=== PATIENT | female | born 1995 | race Caucasian/White ===

== ENCOUNTER 2017-01-18 06:58 | Emergency (ER) | payer OTHER ==
--- NOTE | 2017-01-18 07:29 | OBHP ---
Datetime: 01/18/2017 07:26 IP Adm Impression: Term, intrauterine IP Admit Plan: Observation/Evaluation Admit Comment, IP Provider: at 37.5weeks came with ctxs started last night, irrg, 02/20, no vb, lof,+fm. obhx 1 x pmh den med pnv all nkda psh den soch de ve closed a/p at 37+weeks in early labor npo/ivf ua cont bonnie and efm cont close observation Pelvic Type - PN: Adequate Extremities - PN: Normal Abdomen - PN: Normal Back - PN: Normal Breast - PN: Normal Lungs - PN: Normal Heart - PN: Normal Thyroid - PN: Normal Neurologic - PN: Normal HEENT - PN: Normal General - PN: Normal FHR - Baseline A Provider: 130 Contraction Comments Provider: irrg EGA AdmitDate IP: 37.5 Vital Signs Provider: Reviewed; Within Normal Limits IP Chief Complaint: Uterine contractions NICHD Variability Prov Fetus A: Moderate 6-25bpm NICHD Accel Fetus A IP Provider: [id number] FHR Category Provider Fetus A: Category I Dilatation, Provider: 0 Effacement, Provider: 0 Station, Provider: -3 Genitourinary Exam: Normal DTRs - PN: Normal
[2017-01-18 07:35] VITALS: BMI 40.2
[2017-01-18] MEDS ORDERED: Lactated Ringer's 1,000 ML IV SCH (07:45)
--- NOTE | 2017-01-18 08:59 | OBDCSUM ---
Datetime: 01/18/2017 08:58 Discharged to, Provider: Home Follow up at, Provider: 2days Follow up in weeks, Provider: clinic Discharge Comment, Provider: labor ins given po hyration f/u in 2dauys Discharge Diagnosis Prov Other: 37 weeks false labor
--- NOTE | 2017-01-18 08:59 | OBHP ---
Datetime: 01/18/2017 08:54 Admit Comment, IP Provider: pt was examined at bed side. feels better, occ ctxs ve closed fluid gived plan dchome labor ins given f/u in clinic on wednesday FHR - Baseline A Provider: 130 Contraction Comments Provider: irrg Vital Signs Provider: Reviewed; Within Normal Limits NICHD Variability Prov Fetus A: Moderate 6-25bpm NICHD Accel Fetus A IP Provider: [id number] FHR Category Provider Fetus A: Category I Dilatation, Provider: 0 Effacement, Provider: 0 Station, Provider: -3 Datetime: 01/18/2017 07:26 EGA AdmitDate IP: 37.5
[2017-01-18 11:17] LABS: URINE BILIRUBIN NEGATIVE (NEGATIVE); URINE BLOOD NEGATIVE (NEGATIVE); URINE COLOR Yellow (YELLOW); URINE GLUCOSE (UA) NORMAL (Normal); URINE KETONE NEGATIVE (NEGATIVE); URINE LEUKOCYTE ESTERASE NEG Leu/uL (Negative); URINE PROTEIN NEGATIVE (NEGATIVE); URINE UROBILINOGEN NORMAL mg/dL (0.2-1.0); WBC URINE 1 /hpf (0-5)
== END 2017-01-18 09:08 | disposition home or self-care (01) ==
LOC: C.EROB 06:58
DX: O60.03 Preterm labor without delivery, third trimester (principal); Z3A.37 37 weeks gestation of pregnancy
CPT/HCPCS: 81001; 99283; J7120